=== PATIENT | female | born 1980 | race Two or more races ===

== ENCOUNTER → 2025-03-19 | Outpatient (CLI) | payer BC, SELFPAY ==
[2025-03-19 08:14] LABS: Collection Type, Urine Clean Catch
[2025-03-19 08:46] LABS: Bacteria,Urine Rare; Bilirubin,Urine Negative (Negative); Blood,Urine Negative (Negative); Clarity,Urine Clear (Clear/Hazy); Color,Urine Lt-Yellow (Lt Yel-Yel); Glucose, Urine Negative (Negative); Ketones,Urine Negative (Negative); Leukocyte Esterase,Urine Negative (Negative); Nitrite,Urine Negative (Negative); PH,Urine 5.5 (5.0-7.0); Protein,Urine Negative (Neg - Trace); RBC,Urine 19 /hpf (0-3); Specific Gravity,Urine 1.012 (1.001-1.035); Squamous Epithelial Cell,Urine < 1 /hpf (0-5); Urobilinogen,Urine Negative mg/dL (0.0-1.0); WBC,Urine 22 /hpf (0-5)
[2025-03-19 08:46] LABS: Basophils % (Auto) 1 % (0-2.5); Eosinophils # (Auto) 0.2 Thou/mm3 (0.0-0.5); Eosinophils % (Auto) 3 % (0-10); Hematocrit 38.8 % (36.0-46.0); Hemoglobin 12.5 g/dL (12.0-16.0); Immature Granulocytes % (Auto) 1 % (0-0); Immature Granulocytes Auto 0.04 Thou/mm3 (0.00-0.00); Lymphocytes # (Auto) 2.4 Thou/mm3 (1.0-4.8); Lymphocytes % (Auto) 29 % (10-50); Mean Corpuscular HGB Conc 32.2 g/dl (31.0-37.0); Mean Corpuscular Volume 81 fL (80-100); Monocytes # (Auto) 0.5 Thou/mm3 (0.0-0.8); Monocytes % (Auto) 7 % (0-12); Neutrophils # (Auto) 5.1 Thou/mm3 (1.8-7.7); Neutrophils % (Auto) 61 % (37-80); Nucleated Red Blood Cell % 0 /100 WBC (0); Platelet Count 389 Thou/mm3 (140-440); White Blood Count 8.4 Thou/mm3 (3.6-11.0)
[2025-03-19 08:54] LABS: Culture Indicated,Urine Yes
[2025-03-19 08:55] LABS: Alanine Aminotransferase 33 U/L (10-49); Albumin, Serum 4.4 gm/dL (3.5-5.0); Albumin/Globulin Ratio 1.3 (1.2-2.2); Alkaline Phosphatase 136 U/L (46-116); Anion Gap 9 (7-16); Aspartate Amino Transferase 22 U/L (0-34); BUN/Creatinine Ratio 11 Ratio (12-20); Bilirubin,Total 0.5 mg/dL (0.3-1.2); Blood Urea Nitrogen 9 mg/dL (9-23); Calcium 9.1 mg/dL (8.3-10.6); Calcium (Corrected) 9.1 mg/dL (8.5-10.1); Carbon Dioxide 26.2 mMol/L (20.0-31.0); Chloride 104 mMol/L (98-107); Creatinine (Component) 0.8 mg/dL (0.6-1.3); Globulin 3.3 gm/dL (2.3-3.5); Glucose 122 mg/dL (74-106); Osmolality,Calculated 277 (275-295); Potassium 4.2 mMol/L (3.4-5.1); Sodium 139 mMol/L (136-145); Total Protein 7.7 gm/dL (5.7-8.2); eGFR > 60 See Note
== END | disposition home or self-care (01) ==
LOC: COPL 06:57
PROVIDERS: PCP Nurse Practitioner Family; Referring Provider Nurse Practitioner Family; Visit Provider Nurse Practitioner Family
DX: Z00.00 Encounter for general adult medical examination without abnormal findings (principal); N39.0 Urinary tract infection, site not specified; Z13.29 Encounter for screening for other suspected endocrine disorder; Z13.1 Encounter for screening for diabetes mellitus
CPT/HCPCS: 36415; 80053; 81001; 85025; 87086

== ENCOUNTER 2025-06-27 17:12 | Emergency (ER) | payer BC, SELFPAY ==
[2025-06-27 17:13] VITALS: BMI 28.3
[2025-06-27 17:33] VITALS: BP 136/92; PULSE 86; RESP 22; TEMP 36.6; O2SAT 99
--- NOTE | 2025-06-27 18:23 | XR_ITS ---
Examination: CT abdomen and pelvis without contrast. Coronal 3-D reconstructions. Sagittal 2-D reconstructions. Date and time of exam:June 27, 20251919 INDICATIONS: Abdominal pain beginning 2 days ago CTDI: vol (mGy): 9.6 DLP: (mGycm): 555. Technique: Axial images of the abdomen have been obtained, 3 mm slice thickness Intravenous contrast material has not been administered. Low dose protocols were performed. One or more of the following dose reduction techniques were used; automated exposure control, adjustment of the mA and/or KV according to patient size, use of iterative reconstruction technique. Findings: No focal liver or splenic lesions Gallstones Gallbladder wall appears thickened No pancreatic mass No renal or ureteral calculi, no hydronephrosis Aorta normal size No bowel obstruction No pericecal inflammatory change No diverticulitis Uterine poorly defined fundal masses Urinary bladder intact IMPRESSION: Cholelithiasis, recommend hepatobiliary sonography to exclude cholecystitis No CT findings of appendicitis or bowel obstruction Recommend pelvic sonography to confirm uterine fundal masses
[2025-06-27 18:59] LABS: Basophils # (Auto) 0.0 Thou/mm3 (0.0-0.2); Basophils % (Auto) 0 % (0-2.5); Eosinophils # (Auto) 0.1 Thou/mm3 (0.0-0.5); Eosinophils % (Auto) 1 % (0-10); Hematocrit 37.9 % (36.0-46.0); Hemoglobin 12.0 g/dL (12.0-16.0); Immature Granulocytes Auto 0.05 Thou/mm3 (0.00-0.00); Lymphocytes # (Auto) 1.8 Thou/mm3 (1.0-4.8); Lymphocytes % (Auto) 14 % (10-50); Mean Corpuscular HGB Conc 31.7 g/dl (31.0-37.0); Mean Corpuscular Hemoglobin 25.7 pg (25.0-35.0); Mean Corpuscular Volume 81 fL (80-100); Monocytes # (Auto) 0.5 Thou/mm3 (0.0-0.8); Monocytes % (Auto) 4 % (0-12); Neutrophils # (Auto) 11.0 Thou/mm3 (1.8-7.7); Neutrophils % (Auto) 81 % (37-80); Nucleated Red Blood Cell # 0.00 Thou/mm3 (0.00-0.00); Nucleated Red Blood Cell % 0 /100 WBC (0); Platelet Count 405 Thou/mm3 (140-440); RDW Standard Deviation 41.6 fL (36.4-46.3); Red Blood Count 4.67 Miln/mm3 (4.00-5.20); White Blood Count 13.6 Thou/mm3 (3.6-11.0)
[2025-06-27 19:22] LABS: Alanine Aminotransferase 23 U/L (10-49); Albumin, Serum 4.4 gm/dL (3.5-5.0); Albumin/Globulin Ratio 1.2 (1.2-2.2); Alkaline Phosphatase 129 U/L (46-116); Anion Gap 10 (7-16); Aspartate Amino Transferase 18 U/L (0-34); BUN/Creatinine Ratio 11 Ratio (12-20); Bilirubin,Total 0.4 mg/dL (0.3-1.2); Blood Urea Nitrogen 10 mg/dL (9-23); Calcium 9.6 mg/dL (8.3-10.6); Calcium (Corrected) 9.6 mg/dL (8.5-10.1); Carbon Dioxide 26.0 mMol/L (20.0-31.0); Chloride 104 mMol/L (98-107); Creatinine (Component) 0.9 mg/dL (0.6-1.3); Estimated Creatinine Clearance 82.8 mL/min (>60); Globulin 3.6 gm/dL (2.3-3.5); Glucose 117 mg/dL (74-106); Lipase 30 U/L (12-53); Osmolality,Calculated 279 (275-295); Potassium 4.0 mMol/L (3.4-5.1); Sodium 140 mMol/L (136-145); Total Protein 8.0 gm/dL (5.7-8.2); eGFR > 60 See Note
[2025-06-27 20:01] LABS: Collection Type, Urine Clean Catch
[2025-06-27 20:04] LABS: HCG Qualitative,Urine Negative
[2025-06-27 20:08] LABS: Bilirubin,Urine Negative (Negative); Blood,Urine 1+ (Negative); Budding Yeast,Urine Present; Clarity,Urine Turbid (Clear/Hazy); Color,Urine Lt-Yellow (Lt Yel-Yel); Glucose, Urine Negative (Negative); Ketones,Urine 1+ (Negative); Leukocyte Esterase,Urine Negative (Negative); Nitrite,Urine Negative (Negative); PH,Urine 8.0 (5.0-7.0); Protein,Urine Negative (Neg - Trace); RBC,Urine 7 /hpf (0-3); Specific Gravity,Urine 1.017 (1.001-1.035); Squamous Epithelial Cell,Urine 1 /hpf (0-5); Urobilinogen,Urine Negative mg/dL (0.0-1.0); WBC,Urine 4 /hpf (0-5)
--- NOTE | 2025-06-27 20:40 | XR_ITS ---
Examination: Abdomen sonogram, Limited Date and time of exam: June 27, 2025 1921 hours INDICATIONS: Right upper abdominal pain beginning 2 days ago Technique: Real-time tony scale transabdominal sonographic images of the upper abdomen obtained. Findings: 16 mm gallstone Gallbladder wall 22 cm no edema Common bile duct by this exam no definite stones Pancreatic head 2.2 cm Liver 13.8 cm no liver lesions Normal hepatopedal portal venous flow Patent IVC IMPRESSION: Cholelithiasis, negative for cholecystitis Enlarged common bile duct 0.6 cm, if biliary colic is a clinical consideration suggest MRCP follow-up
[2025-06-27 22:20] VITALS: BP 121/85; PULSE 77; RESP 18; TEMP 36.9; O2SAT 99
--- NOTE | 2025-06-27 22:21 | PD.EDABDPN ---
ED Abdominal Pain RME/HPI General Chief Complaint: Abdominal Pain Stated complaint: R. UPPER ABD PAIN RADIATING TO BACK ANDSHOULDER Time seen by provider: 06/27/25 18:20 Arrival date/time: 06/27/25 17:12 This is a case of a 45-year-old female with history of cholelithiasis came in in the emergency room due to right-sided abdominal pain radiating to the flank for with 1 day with nausea vomiting no diarrhea no constipation no blood in stool persistence of the symptoms this patient decided to sought consult here in the emergency room Limitations: no limitations Related Data Previous Rx's ?Medication ?Instructions ?Recorded hydrocodone 5 mg-acetaminophen 325 1 tab PO Q6H PRN pain #12 tabs 06/27/25 mg tablet ondansetron 4 mg disintegrating 4 mg PO Q8H PRN nausea and 06/27/25 tablet vomiting #20 tabs Allergies Allergy/AdvReac Type Severity Reaction Status Date / Time No Known Allergies Allergy Verified 06/27/25 17:13 Review of Systems Review of Systems Systems Reviewed: All systems reviewed, normal except as documented Constitutional Constitutional: Reports system reviewed and no additional complaints, except as documented and Reports as per HPI Cardiovascular Cardiovascular: Reports system reviewed and no additional complaints, except as documented and Reports as per HPI Respiratory Respiratory: Reports system reviewed and no additional complaints, except as documented and Reports as per HPI Gastrointestinal Gastrointestinal: Reports system reviewed and no additional complaints, except as documented, Reports as per HPI, Reports abdominal pain and Reports vomiting Genitourinary Genitourinary: Reports system reviewed and no additional complaints, except as documented and Reports as per HPI Neurologic Neurologic: Reports system reviewed and no additional complaints, except as documented and Reports as per HPI Past Medical History Social History SMOKING STATUS: Never smoker ED Exam General Limitations: Present no limitations General appearance: Present alert, in no apparent distress and other (Patient is awake alert oriented not in distress nontoxic looking well-hydrated well-nourished) Head Head exam: Present atraumatic, normocephalic and normal inspection Eye Eye exam: Present normal appearance, PERRL and EOMI ENT ENT exam: Present normal exam, normal oropharynx and mucous membranes moist Neck Neck exam: Present normal inspection, full ROM and trachea midline Chest Chest inspection: Present normal inspection and symmetric chest wall rise Respiratory Respiratory exam: Present normal lung sounds bilaterally; Absent respiratory distress, wheezes, stridor, accessory muscle use or prolonged expiratory phase Cardiovascular Cardiovascular exam: Present regular rate, normal rhythm and normal heart sounds; Absent bradycardia, tachycardia, irregular rhythm or systolic murmur Abdominal Exam Abdominal exam: Present soft, tenderness (Mild tenderness in the right upper quadrant) and normal bowel sounds; Absent distention, guarding, rebound, rigidity, diminished bowel sounds, hyperactive bowel sounds, hypoactive bowel sounds, organomegaly, obturator sign, Hudson's sign, Rovsing's sign or tenderness at McBurney's Point Extremities Exam Extremities exam: Present normal inspection and full ROM Back Exam Back exam: Present normal inspection and full ROM Neurological Exam Neurological exam: Present alert, oriented X3, CN II-XII intact and normal gait; Absent motor sensory deficit or reflexes normal Psychiatric Psychiatric exam: Present normal affect and normal mood Skin Skin exam: Present warm, dry, intact and normal color Course Quality Measures none Orders Category Date Time Status CT abdomen pelvis wo con Stat Exams 06/27/25 18:23 Completed US gall bladder Stat Exams 06/27/25 20:40 Completed CBC Stat Lab 06/27/25 18:49 Completed Comprehensive Metabolic Panel Stat Lab 06/27/25 18:49 Completed HCG Qualitative,Urine Stat Lab 06/27/25 07:17 Completed Lipase Stat Lab 06/27/25 18:49 Completed Urinalysis Stat Lab 06/27/25 07:17 Completed Morphine Inj Med 06/27/25 22:17 Once 4 mg IM X1 ONE Ondansetron Odt [Zofran Odt] Med 06/27/25 22:17 Once 4 mg PO X1 ONE Vital Signs Vital signs: Vital Signs Temperature 98 F 06/27/25 17:33 Pulse Rate 86 06/27/25 17:33 Respiratory Rate 22 H 06/27/25 17:33 Blood Pressure 136/92 H 06/27/25 17:33 Pulse Oximetry (%) 99 06/27/25 17:33 Oxygen Delivery Method Room Air 06/27/25 17:33 Oxygen saturation is 99% room air normal Abdominal Pain MDM MDM Narrative MDM Narrative:: This is a case of a 45-year-old female with history of cholelithiasis came in in the emergency room due to right-sided abdominal pain radiating to the flank for with 1 day with nausea vomiting no diarrhea no constipation no blood in stool persistence of the symptoms this patient decided to sought consult here in the emergency room physical examination patient is awake alert oriented not in distress nontoxic looking well-hydrated well-nourished abdominal exam is benign nonsurgical mild to moderate tenderness in the right upper quadrant no guarding no rebound no rigidity negative psoas negative straight or negative Rovsing's negative McBurney's negative Hudson sign negative CVA tenderness no signs of symptoms of sepsis no tonsillitis no dehydration patient blood test showed leukocytosis at 13,000 no anemia kidney and liver function is normal no electrolyte imbalance urinalysis is normal CT scan showed a cholelithiasis ultrasound confirmed that the patient have cholelithiasis but no cholecystitis mildly dilated common bile duct 0.6 I do not think the patient needs MRCP at this time patient has no signs and symptoms of biliary patient was advised to return tomorrow if there is persistent or worsening symptoms after giving morphine and Zofran patient condition markedly improved patient will follow-up with PCP to be referred to general surgeon and greenskeeper for further evaluation and treatment of cholelithiasis worsening symptoms or any emergent concerns she was advised to return in the emergency room immediately or call 911 Patient was discharged with comfortable condition walking with stable gait. Patient verbalized no further complains explained diagnosis and answered patient question. Patient is comfortable with the proposed management plan including the need to follow up with his/her primary care physician and any specialist if applicable Discussed patient for any urgent condition or worsening sx, He/She needed to go to emergency room immediately or call 911. Patient acknowledge the responsibility to follow up as instructed and to monitor her/his symptoms. For any persistence of the symptoms for more than 3-5 days return precaution advised. Discussed the result of the test and was given printed discharge instruction Patient data External records reviewed:: [facility] previous records Clinical information provided by:: patient Social determinants that could affect healthcare access:: none Patient has the following chronic illnesses:: None How is presenting disease/condition affected by chronic disease/condition?: no chronic disease Evaluation data The following diagnostics were reviewed and interpreted by me:: lab results and radiology exam(s) Lab and/or radiology exams considered but not ordered:: Reviewed Interpretation Summary: Reviewed Medications / Prescriptions Medications or Prescriptions considered but not ordered:: Given Medication administrations:: Medication Administration History Morphine Sulfate (Morphine Sulf Inj 10 Mg/Ml Vial) 4 mg IM X1 ONE Stop: 06/27/25 22:18 Ondansetron HCl (Ondansetron Odt 4 Mg Tabrap) 4 mg PO X1 ONE; Protocol Stop: 06/27/25 22:18 Given Consultations Consultation(s) initiated? (list below): No Diagnosis Differential diagnosis abdominal pain: abdominal pain, acute appendicitis, calculus of kidney and other (Cholelithiasis) Most likely diagnosis given after review of the tests above:: Cholelithiasis Admission Indicated Admission indicated?: not indicated Explain why admission is indicated or not indicated:: Not indicated Admission Request Was there a request for admission?: No Admission Attestation Admission request attestation: Not indicated Disposition Plan Disposition Plan: Discharge Discharge Attestation Discharge Attestation: The patient and all family members were given an opportunity to ask questions and understood the discharge instructions. Discharge instructions specifically effects, indications for sooner follow up or return to the emergency department, and the expected course of current diagnosis. Patient condition: Stable Discharge Plan Plan Patient Disposition: HOME (Self Care) Patient condition on transfer: Stable Prescriptions/Referrals Prescriptions/Med Rec: New hydrocodone-acetaminophen 5-325 mg tablet 1 tab PO Q6H MDD max 4 tabs per day PRN (Reason: pain) Qty: 12 0RF ondansetron 4 mg tablet,disintegrating 4 mg PO Q8H PRN (Reason: nausea and vomiting) Qty: 20 0RF Referrals: Judson Maldonado MD [Physician] - 06/29/25 (For further evaluation and treatment of cholelithiasis) LONDON RETANA [Primary Care Provider] - In 1 week Problem List Clinical Impression: Abdominal pain, Cholelithiasis Patient/Caregiver Discharge Instructions Education Materials: Abdominal Pain, What Are Gallstones, Treating Gallstones Additional Instructions: Follow-up with your primary care physician in 2 days for reevaluation it is very important to see a general surgeon and greenskeeper for further evaluation and treatment of your cholelithiasis it is also important to return tomorrow for further evaluation and treatment and possible MRCP as suggested by the radiologist worsening symptoms or any emergent concerns such as jaundice severe abdominal pain nausea vomiting return to the emergency room immediately or call 911 take your medication as directed keep hydrated avoid fatty fried high cholesterol diet food Print Language: Wolof Stand Alone Forms: Gabi Award Info., Patient Portal Info Letter PA/DOG OBEDIENCE INSTRUCTOR Supervising Physician PA/DOG OBEDIENCE INSTRUCTOR Supervising Physician: Dr. Hidalgo
[2025-06-27] MEDS: MORPHINE SULF INJ 10 MG/ML VIAL 4 MG IM (22:40)
[2025-06-27] MEDS: ONDANSETRON ODT 4 MG TABRAP PO (22:40)
== END 2025-06-27 22:48 | disposition home or self-care (01) ==
PROVIDERS: Nurse Practitioner Family; Emergency Provider Emergency Medicine; PCP Nurse Practitioner Family
DX: K80.20 Calculus of gallbladder without cholecystitis without obstruction (principal)
CPT/HCPCS: 36415; 74176; 76705; 80053; 81001; 81025; 83690; 85025; 96372; 99283; J2270; Q0162

== ENCOUNTER → 2025-07-01 | Outpatient (CLI) | payer BC, SELFPAY ==
[2025-07-01 08:18] LABS: Collection Type, Urine Clean Catch
[2025-07-01 08:47] LABS: Basophils # (Auto) 0.0 Thou/mm3 (0.0-0.2); Basophils % (Auto) 0 % (0-2.5); Eosinophils # (Auto) 0.2 Thou/mm3 (0.0-0.5); Eosinophils % (Auto) 2 % (0-10); Hematocrit 42.0 % (36.0-46.0); Hemoglobin 13.1 g/dL (12.0-16.0); Immature Granulocytes Auto 0.04 Thou/mm3 (0.00-0.00); Lymphocytes # (Auto) 2.7 Thou/mm3 (1.0-4.8); Lymphocytes % (Auto) 30 % (10-50); Mean Corpuscular HGB Conc 31.2 g/dl (31.0-37.0); Mean Corpuscular Hemoglobin 26.0 pg (25.0-35.0); Mean Corpuscular Volume 83 fL (80-100); Monocytes # (Auto) 0.5 Thou/mm3 (0.0-0.8); Monocytes % (Auto) 5 % (0-12); Neutrophils # (Auto) 5.7 Thou/mm3 (1.8-7.7); Neutrophils % (Auto) 62 % (37-80); Nucleated Red Blood Cell # 0.00 Thou/mm3 (0.00-0.00); Nucleated Red Blood Cell % 0 /100 WBC (0); Platelet Count 405 Thou/mm3 (140-440); RDW Standard Deviation 42.0 fL (36.4-46.3); Red Blood Count 5.04 Miln/mm3 (4.00-5.20); White Blood Count 9.2 Thou/mm3 (3.6-11.0)
[2025-07-01 08:56] LABS: Bacteria,Urine Rare; Bilirubin,Urine Negative (Negative); Blood,Urine 2+ (Negative); Clarity,Urine Clear (Clear/Hazy); Color,Urine Yellow (Lt Yel-Yel); Culture Indicated,Urine Not Indicated; Glucose, Urine Negative (Negative); Ketones,Urine Negative (Negative); Leukocyte Esterase,Urine Negative (Negative); Nitrite,Urine Negative (Negative); PH,Urine 5.5 (5.0-7.0); Protein,Urine Trace (Neg - Trace); RBC,Urine 13 /hpf (0-3); Specific Gravity,Urine 1.027 (1.001-1.035); Squamous Epithelial Cell,Urine 10 /hpf (0-5); Urobilinogen,Urine Negative mg/dL (0.0-1.0); WBC,Urine 2 /hpf (0-5)
[2025-07-01 09:02] LABS: Alanine Aminotransferase 19 U/L (10-49); Albumin, Serum 4.6 gm/dL (3.5-5.0); Albumin/Globulin Ratio 1.5 (1.2-2.2); Alkaline Phosphatase 123 U/L (46-116); Anion Gap 7 (7-16); Aspartate Amino Transferase 17 U/L (0-34); BUN/Creatinine Ratio 15 Ratio (12-20); Bilirubin,Total 0.5 mg/dL (0.3-1.2); Blood Urea Nitrogen 12 mg/dL (9-23); Calcium 10.3 mg/dL (8.3-10.6); Calcium (Corrected) 10.3 mg/dL (8.5-10.1); Carbon Dioxide 27.0 mMol/L (20.0-31.0); Chloride 106 mMol/L (98-107); Creatinine (Component) 0.8 mg/dL (0.6-1.3); Globulin 3.0 gm/dL (2.3-3.5); Glucose 101 mg/dL (74-106); Osmolality,Calculated 279 (275-295); Potassium 4.8 mMol/L (3.4-5.1); Sodium 140 mMol/L (136-145); Total Protein 7.6 gm/dL (5.7-8.2); eGFR > 60 See Note
== END | disposition home or self-care (01) ==
LOC: COPL 06:42
PROVIDERS: PCP Nurse Practitioner Family; Referring Provider Nurse Practitioner Family; Visit Provider Nurse Practitioner Family
DX: Z00.00 Encounter for general adult medical examination without abnormal findings (principal); N39.0 Urinary tract infection, site not specified; Z13.29 Encounter for screening for other suspected endocrine disorder
CPT/HCPCS: 36415; 80053; 81001; 85025

== ENCOUNTER 2025-07-30 08:20 | Day surgery (SDC) | payer BC, SELFPAY ==
--- NOTE | 2025-07-27 07:00 | EKG_ITS ---
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
[2025-07-27 07:37] VITALS: BMI 27.6
[2025-07-27 08:54] LABS: Basophils # (Auto) 0.0 Thou/mm3 (0.0-0.2); Basophils % (Auto) 0 % (0-2.5); Eosinophils # (Auto) 0.3 Thou/mm3 (0.0-0.5); Eosinophils % (Auto) 3 % (0-10); Hematocrit 40.5 % (36.0-46.0); Hemoglobin 12.7 g/dL (12.0-16.0); Immature Granulocytes Auto 0.03 Thou/mm3 (0.00-0.00); Lymphocytes # (Auto) 3.1 Thou/mm3 (1.0-4.8); Lymphocytes % (Auto) 33 % (10-50); Mean Corpuscular HGB Conc 31.4 g/dl (31.0-37.0); Mean Corpuscular Hemoglobin 25.9 pg (25.0-35.0); Mean Corpuscular Volume 83 fL (80-100); Monocytes # (Auto) 0.5 Thou/mm3 (0.0-0.8); Monocytes % (Auto) 6 % (0-12); Neutrophils # (Auto) 5.4 Thou/mm3 (1.8-7.7); Neutrophils % (Auto) 58 % (37-80); Nucleated Red Blood Cell # 0.00 Thou/mm3 (0.00-0.00); Nucleated Red Blood Cell % 0 /100 WBC (0); Platelet Count 356 Thou/mm3 (140-440); RDW Standard Deviation 42.9 fL (36.4-46.3); Red Blood Count 4.91 Miln/mm3 (4.00-5.20); White Blood Count 9.4 Thou/mm3 (3.6-11.0)
[2025-07-27 09:05] LABS: Alanine Aminotransferase 43 U/L (10-49); Albumin, Serum 4.6 gm/dL (3.5-5.0); Albumin/Globulin Ratio 1.4 (1.2-2.2); Alkaline Phosphatase 124 U/L (46-116); Anion Gap 8 (7-16); Aspartate Amino Transferase 30 U/L (0-34); BUN/Creatinine Ratio 10 Ratio (12-20); Bilirubin,Total 0.5 mg/dL (0.3-1.2); Blood Urea Nitrogen 8 mg/dL (9-23); Calcium 9.9 mg/dL (8.3-10.6); Calcium (Corrected) 9.9 mg/dL (8.5-10.1); Carbon Dioxide 26.8 mMol/L (20.0-31.0); Chloride 105 mMol/L (98-107); Creatinine (Component) 0.8 mg/dL (0.6-1.3); Estimated Creatinine Clearance 92.2 mL/min (>60); Globulin 3.3 gm/dL (2.3-3.5); Glucose 105 mg/dL (74-106); Osmolality,Calculated 277 (275-295); Potassium 4.2 mMol/L (3.4-5.1); Sodium 140 mMol/L (136-145); Total Protein 7.9 gm/dL (5.7-8.2); eGFR > 60 See Note
[2025-07-27 09:46] LABS: HCG,Qualitative Serum Negative
[2025-07-30] VITALS (19 sets, daily range): BP systolic 111–143; BP diastolic 69–98; PULSE 87–107; RESP 12–19; TEMP 36.2–37; O2SAT 93–100; BMI 27.5
[2025-07-30] MEDS: RINGERS LACTATED 1000 ML 1,000 ML 20 ML IV (08:57)
--- NOTE | 2025-07-30 10:55 | SUR.PHASEI ---
1055: Pt. AAOx4, vitals stable, breathing unlabored, no complaint of pain or nausea, x4 dermabond sites to ABD CDI, no active bleed noted, report received from Artur CENTENO and Sienna GARCIA.
[2025-07-30] MEDS: HYDROmorphone INJ 2 MG/ML VIAL 0.4 MG IVP ×3 (11:05→11:29)
--- NOTE | 2025-07-30 11:06 | PD.SUROPNT ---
Date of Procedure 07/30/25 Pre Op Diagnosis Symptomatic cholelithiasis Post Op Diagnosis Cholelithiasis with cholecystitis Procedure Laparoscopic cholecystectomy Findings Moderately distended gallbladder with gallstones and chronic cholecystitis Procedure Description Patient was brought into the operating room in supine position. After administration of general endotracheal anesthesia abdomen was prepped and draped in standard surgical manner. A Veress needle was inserted through the umbilicus and pneumoperitoneum was obtained up to 15 mmHg. The Veress needle was then removed, a 5 mm infraumbilical incision was made and the 5mm trocar was inserted. Laparoscopic camera was placed. Under direct visualization a laparoscopic camera a 10 mm trocar was placed in subxiphoid and two 5 mm trocars placed in right upper quadrant. The gallbladder was identified and was noted to be moderately distended with gallstones and chronic cholecystitis. It was retracted cephalad and laterally. Dissection started near the infundibulum of gallbladder where cystic duct and gallbladder junction clearly identified. The cystic duct was circumferentially dissected off the peritoneum and surrounding inflammatory tissue. The critical view of safety was clearly demonstrated. Cystic duct was then divided between 2 endoclips proximally and one distally. The cystic artery was similarly dissected and divided. The gallbladder was then from the liver bed using electrocautery. The gallbladder was then placed inside an Endo Catch and removed from the abdomen utilizing subxiphoid trocar site. The area was copiously and thoroughly washed and irrigated, all the fluid was suctioned and the suction fluid returned clear. Hemostasis achieved using electrocautery. Endoclips noted be in place and intact without any bleeding or any leakage. Hemostasis was adequate and satisfactory. The subxiphoid trocar sites fascial defect was closed with 0 Vicryl using Endo Closure device. Instruments and trocars removed, pneumoperitoneum was evacuated and the incisions closed with 4-0 Monocryl in subcuticular fashion. Instrument needle and sponge counts were all reported to be correct X2. Patient tolerated the procedure well, was extubated, breathing spontaneously and without difficulty and was transferred to postanesthesia care in stable condition. Anesthesia GETA and local Pathology / specimen Other (Gallbladder and contents) Estimated Blood Loss 10 Condition Stable Disposition PACU Surgeon Judson Maldonado MD Surgical Staff Operation Date: 07/30/25 10:30 Case Staff POLYGRAPH TECHNICIAN: Walter Hannon RN First Assistant: Elizabeth Carlos
--- NOTE | 2025-07-30 12:18 | SUR.PHASEII ---
1218: Pt. wakes to name then drifts back to sleep, SPO2 decreases when sleeping, pt. tolerated sips of water well, report received from Jeannette Rivas RN.
--- NOTE | 2025-07-30 12:18 | SUR.PHASEII ---
1140: pt drowsy but arouses to voice, breathing unlabored, dressing to abdomen clean, dry, and intact, VS stable, pt on 1 L nasal canula 1155: pt remains very drowsy, spo2 drops to low 80's without O2 1218: pt remains drowsy, breathing unlabored, dressing to abdomen clean, dry, and intact, report to Katiuska GARCIA
[2025-07-30] MEDS: ONDANSETRON INJ 2 MG/ML INJ 2 ML 4 MG IV (13:10)
--- NOTE | 2025-07-30 14:15 | SUR.PHASEII ---
Pt. still apneic when sleeping, SPO2 drops to 70's. Walked pt. to the restroom, gave pt. soda. Educated pt. on how to use IS, Pt. demonstrated how to use IS and was able to use correctly. Currently trying to wean pt. off of O2.
--- NOTE | 2025-07-30 16:00 | SUR.PHASEII ---
1600: Pt. AAOx4, vitals stable, breathing unlabored, no complaint of pain or nausea, dressing to ABD CDI, no active bleed noted, pt. tolerated sips of water well and bites of crackers well, pt. ambulated to wheelchair with steady gait and no assist, no complications. Discharge instructions given to the pt. and her ride using an commander internal affairs, pt. left with all personal belongings. Pt. was able to maintain SPO2 at 92% while sleeping.
== END 2025-07-30 16:00 | disposition home or self-care (01) ==
PROVIDERS: PCP Nurse Practitioner Family; Referring Provider Surgery; Visit Provider Surgery
PROC: 0FT44ZZ Resection of Gallbladder, Percutaneous Endoscopic Approach (ICD-10-PCS; CPT 47562; principal; 2025-07-30 10:15)
DX: K80.10 Calculus of gallbladder with chronic cholecystitis without obstruction (principal); Z01.810 Encounter for preprocedural cardiovascular examination; E78.00 Pure hypercholesterolemia, unspecified
CPT/HCPCS: 47562; 36415; 80053; 84703; 85025; 93005; A4217; A4649; J0131; J0694; J1171; J1885; J2250; J2405; J2704; J3010; J3490; J7120

== ENCOUNTER → 2025-09-28 | Outpatient (CLI) | payer BC, SELFPAY ==
[2025-09-28 07:15] LABS: Misc Send Out* See Sep Rpt
[2025-09-28 09:01] LABS: Cardiac Risk Estimate 10.9 RATIO (3.7-5.6); Cholesterol 348 mg/dL (132-200); HDL Cholesterol 32 mg/dL (40-60); LDL Cholesterol,Calculated 273 mg/dL (0-130); Triglycerides 215 mg/dL (30-150)
[2025-10-05 07:08] LABS: hs-CRP* 5.7 mg/L
== END | disposition home or self-care (01) ==
PROVIDERS: PCP Nurse Practitioner Family; Referring Provider Nurse Practitioner Family; Visit Provider Nurse Practitioner Family
DX: E78.2 Mixed hyperlipidemia (principal); E78.41 Elevated Lipoprotein(a); Z13.220 Encounter for screening for lipoid disorders
CPT/HCPCS: 36415; 80061; 86141